=== PATIENT | female | born 1980 | race Caucasian/White ===

== ENCOUNTER → 2018-06-26 11:40 | Outpatient (CLI) | payer OTHER, SELFPAY ==
[2018-06-26 13:37] LABS: Blood Urea Nitrogen 11 mg/dL (7-17); Carbon Dioxide 27 mmol/L (22-32); Chloride 104 mmol/L (98-107); Potassium 4.2 mmol/L (3.4-5.1); Sodium 141 mmol/L (137-145)
[2018-06-26 13:38] LABS: Alanine Aminotransferase 31 IU/L (9-52); Albumin 4.5 g/dL (3.5-5.0); Albumin Globulin Ratio 1.7 (1.0-2.8); Alkaline Phosphatase 50 U/L (38-126); Aspartate Aminotransferase 24 IU/L (14-36); BUN Creatinine Ratio 15.7 (6-22); Bilirubin Total 1.1 mg/dL (0.2-1.3); Calcium 9.5 mg/dL (8.4-10.2); Estimated Glomerular Filt Rate > 60.0 mL/min (>60); Globulin 2.6 g/dL (1.7-4.1); Glucose 78 mg/dL (70-100); HEMOLYSIS < 15 (0-50); Lipase 93 U/L (23-300); Total Protein 7.1 g/dL (6.3-8.2)
== END ==
PROVIDERS: PCP Family Medicine; Visit Provider Registered Nurse
DX: R10.11 Right upper quadrant pain (principal)
CPT/HCPCS: 36415; 80053; 83690

== ENCOUNTER → 2018-07-17 09:16 | Outpatient (CLI) | payer OTHER, SELFPAY ==
--- NOTE | 2018-07-17 09:17 | DI.US.S_ITS ---
PROCEDURE: US ABDOMEN COMPLETE INDICATIONS: RIGHT UPPER QUADRANT PAIN TECHNIQUE: Real-time scanning was performed of the abdominal and retroperitoneal organs, with image documentation. COMPARISON: None. FINDINGS: Liver: Liver is normal in size and homogeneous in echotexture. Gallbladder: The gallbladder wall measures 2.0 mm in diameter. No stones, sludge, pericholecystic fluid, and sonographic Sarkar's sign. Biliary ducts: Intrahepatic bile ducts are non-dilated. Extrahepatic bile duct caliber measures 4 mm. Normal is 6-7 mm or less in diameter, or 10 mm or less post-cholecystectomy. Pancreas: Visualized portions of the pancreas are sonographically normal. Spleen: Spleen is normal in size and homogeneous in echotexture. A 2.4 cm in diameter splenule is present inferior to the spleen. Kidneys: Kidneys are normal in size and echotexture. Right kidney measures 10.4 cm long; left kidney measures 10.7 cm long. No hydronephrosis or nephrolithiasis. No solid masses. Aorta: Visualized aorta is normal in caliber at less than 3 cm. Iliacs: Proximal common iliac arteries are normal in caliber at less than 2.5 cm. IVC: Intrahepatic inferior vena cava is patent. Miscellaneous: No free abdominal fluid. IMPRESSION: 1. No cholelithiasis or findings to suggest choledocholithiasis or acute cholecystitis. No findings to explain patient's pain. Dictated by: Maribel Paz M.D. on 07/17/2018 at 13:45 Approved by: Maribel Paz M.D. on 07/17/2018 at 13:47
== END ==
PROVIDERS: PCP Family Medicine; Visit Provider Registered Nurse
DX: R10.11 Right upper quadrant pain (principal)
CPT/HCPCS: 76700

== ENCOUNTER → 2019-12-20 07:58 | Outpatient (CLI) | payer OTHER, SELFPAY ==
--- NOTE | 2019-12-20 08:07 | DI.ECHO.S_ITS ---
Echocardiogram Report + + :Name: KRISTINA PRAKASH Study Date: 12/20/2019 Height: 64 in : :[facility] Weight: 160 lb : : Gender: Female BSA: 1.8 m2 : :: 1980 Age: 39 yrs BP: 118/78 mmHg: :Reason For Study: Palpitations, History of Mitral Valve : :Prolapse : :Ordering Physician: JAVON, : :NAEL Performed By: Katherin Fonseca : :Referring: NAEL ALEJANDRO : + + Interpretation Summary Normal left ventricle size with ejection fraction 60-65%. Mildly dilated left atrium. There is a flat closure plane of the the mitral valve leaflets. Mild mitral regurgitation. Mild tricuspid regurgitation. Procedure: A two-dimensional transthoracic echocardiogram with color flow and Doppler was performed. The study quality was technically adequate. There is no prior echocardiogram noted for this patient. The patient was in normal sinus rhythm during the exam. The heart rate ranged between 62-75 bpm during the study. The patient had occasional PVCs during the exam. Left Ventricle: The left ventricle is normal in size and wall thickness. The ejection fraction is estimated to be 60-65%. Left ventricular wall motion is normal. Diastolic parameters suggest probable normal left ventricular diastolic function and normal filling pressures. Right Ventricle: The right ventricle is normal in size and function. Atria: The left atrium is mildly dilated. Right atrial size is normal. There is no Doppler evidence for an interatrial shunt. Mitral Valve: The mitral valve is normal in structure and function. There is a flat closure plane of the the mitral valve leaflets. There is mild mitral regurgitation. Aortic Valve: The aortic valve is trileaflet. The aortic valve opens well. There is no aortic valve stenosis. No aortic regurgitation is present. Tricuspid Valve: The tricuspid valve is normal in structure and function. There is mild tricuspid regurgitation. The right ventricular systolic pressure is estimated to be at least 23 mmHg based on an estimated right atrial pressure of 3 mm Hg. Pulmonic Valve: The pulmonic valve is normal in structure and function. There is no pulmonic valvular regurgitation. Great Vessels: The aortic root is normal size. The dimensions of the ascending aorta are normal. The IVC is of normal diameter and collapses greater than 50% with a sniff. This suggests a low right atrial pressure of 3 mm Hg. Pericardium/ Pleura There is no pericardial effusion. There is no pleural effusion. MMode/2D Measurements & Calculations LVIDd: 4.8 cm LVOT diam: 2.0 cm LVIDs: 3.4 cm Ao root diam: 2.5 cm FS: 29.3 % asc Aorta Diam: 2.8 cm EPSS: 0.33 cm Ao Arch Diam (Prox Trans): 2.3 cm IVSd: 0.73 cm LVPWd: 0.73 cm LV perrin. diameter/BSA (cm/m^2): 2.7 LV sys. diameter/BSA (cm/m^2): 1.9 LA A2 area: 20.0 cm2 RA long axis: 5.1 cm LA A4 area: 20.5 cm2 RA area: 14.6 cm2 LA length (vol): 5.2 cm RA vol: 35.7 ml LA vol: 67.3 ml RA : 20.1 ml/m2 LA vol index: 37.9 ml/m2 IVC diam: 1.7 cm RVD1 (basal): 3.5 cm TAPSE: 1.9 cm Doppler Measurements & Calculations Ao V2 max: 143.3 cm/sec LVOT Max Michael: 111.6 cm/sec Ao V2 mean: 96.3 cm/sec LV V1 max P.0 mmHg Ao max P.2 mmHg LV V1 VTI: 24.1 cm Ao mean P.3 mmHg MATT(I,D): 2.3 cm2 Ao V2 VTI: 33.0 cm MATT(V,D): 2.4 cm2 sev ratio: 0.73 MATT indexed to BSA (cm^2/m^2): 1.3 MV E max michael: 89.3 cm/sec TR max michael: 220.5 cm/sec MV A max michael: 59.3 cm/sec TR max P.5 mmHg MV E/A: 1.5 PA V2 max: 86.0 cm/sec Med Peak E' Michael: 11.4 cm/sec PA V2 mean: 55.2 cm/sec E/E' med: 7.8 PA mean P.4 mmHg Lat Peak E' Michael: 13.1 cm/sec PA pr(Accel): 5.4 mmHg E/E' lat: 6.8 E/e' average: 7.3 MV dec time: 0.15 sec SV(LVOT): 75.0 ml Electronically signed by: Dahlia Vidal on Reading Physician:12/20/2019 11:57 AM
== END ==
PROVIDERS: PCP Family Medicine; Referring Provider Family Medicine; Visit Provider Family Medicine
DX: I08.1 Rheumatic disorders of both mitral and tricuspid valves (principal); R00.2 Palpitations
CPT/HCPCS: 93306

== ENCOUNTER → 2020-01-06 08:16 | Outpatient (CLI) | payer OTHER, SELFPAY ==
--- NOTE | 2020-02-02 10:50 | PM.CARDMON.1 ---
[employer] Report Referral & Results Date Patient Seen: 01/06/20 Requesting provider: Laurie Barnhart Indication: Palpitations Duration of monitoring (days): 14 Diary information: There were 8 patient triggered events and 5 patient diary entries Triggered events were associated (within 45 seconds) with sinus rhythm, PVCs, SVT, ventricular bigeminy, and ventricular tachycardia Diary entries were associated with SVT and sinus rhythm Data: Minimum heart rate was 43 beats per minute at 01:40 on 01/15/2020 Maximum sinus heart rate was 163 beats per minute at 19:31 on 01/17/2020 Overall maximum heart rate was 171 beats per minute at 17:59 on 01/13/2020 during a 9 beat run of ventricular tachycardia (although relatively narrow complex, could be supraventricular or more AV ria in origin) Less than 1% of identified beats or either ventricular supraventricular ectopic in origin. There was 142nd run of ventricular bigeminy There was a 1 run of potential ventricular tachycardia as above that was 9 beats in duration. No other episodes of VT were identified There were 2 runs of SVT/atrial tachycardia with the fastest being 146 during a 7 beat run and the longest lasting 7 beats at a rate of 116 beats per minute which would suggest atrial tachycardia rather than true SVT Impression: Probably relatively minor dysrhythmias as above. Difficult to find a single clear correlation between patient's reported symptoms of palpitations and any particular dysrhythmia
== END ==
PROVIDERS: Family Provider Family Medicine; PCP Family Medicine; Referring Provider Family Medicine; Visit Provider Family Medicine
DX: R00.2 Palpitations (principal)
CPT/HCPCS: 0296T; 0298T

== ENCOUNTER → 2020-08-30 10:07 | Outpatient (CLI) | payer OTHER, SELFPAY ==
--- NOTE | 2020-08-30 10:08 | DI.RAD.S_ITS ---
PROCEDURE: XR HIP W PEL IF DONE LT 2V INDICATIONS: left anterior hip pain TECHNIQUE: AP pelvis with lateral view(s) of the left hip(s). COMPARISON: None. FINDINGS: Bones: No fractures or dislocations. Pelvic ring appears intact. No suspicious bony lesions. Soft tissues: The visualized bowel gas pattern is normal. No suspicious soft tissue calcifications. IMPRESSION: No osseous lesion. If symptoms and/or clinical suspicion for pathology persists, further assessment with repeat radiographs (7-10 days) or advanced imaging (e.g. CT, MRI or bone scan) should be considered. Dictated by: Anais Groves MD, PhD on 08/30/2020 at 17:23 Approved by: Anais Groves MD, PhD on 08/30/2020 at 17:24
== END ==
PROVIDERS: Family Provider Family Medicine; PCP Family Medicine; Referring Provider Family Medicine; Visit Provider Family Medicine
DX: M25.552 Pain in left hip (principal)
CPT/HCPCS: 73502